=== PATIENT | male | born 2000 | race Caucasian/White ===

== ENCOUNTER 2025-04-16 02:17 | Emergency (ER) | payer SELFPAY ==
[~2025-04-16] VITALS: Ht 172.7 cm; Wt 54.5 kg
[2025-04-16] MEDS: PERTUSS(ACELL),DIPH,TET/PF 0.5 ML SYRINGE [ADULT] IM. ONE (04:28)
[2025-04-16] MEDS: LIDOCAINE 1%/EPI 1:200,000/PF 10 ML VIAL SQ ONE (04:29)
[2025-04-16 04:39] VITALS: TEMP 97.3
[2025-04-16] MEDS ORDERED: CEPH-558 PO (08:42)
[2025-04-16] MEDS ORDERED: IBUP-1492 PO (08:42)
[2025-04-16 08:54] VITALS: BP 118/76; PULSE 71; RESP 19; O2SAT 100
== END 2025-04-16 08:56 | disposition home or self-care (01) ==
LOC: EMS 02:20
DX: S70.351A Superficial foreign body, right thigh, initial encounter (principal); W45.8XXA Other foreign body or object entering through skin, initial encounter; Y93.89 Activity, other specified; Y92.89 Other specified places as the place of occurrence of the external cause; Y99.8 Other external cause status
CPT/HCPCS: 99285; 10120; 73700; 73562; 90715; 90471; J3490